=== PATIENT | female | born 1955 | race Caucasian/White ===

== ENCOUNTER → 2016-09-22 | Outpatient (CLI) | payer BC ==
[~2016-09-22] MED LIST: ADVIN25/60 INH; ALBUAER2 INH; MULT-506 PO; NAPR1TAB9 PO; VITAMIN C PO; VNTHFA/IN INH
--- NOTE | 2016-09-22 15:13 | MAMMOGRAPHY REPORT ---
BILATERAL DIGITAL SCREENING MAMMOGRAM WITH CAD: 09/22/2016 CLINICAL HISTORY: Routine screening. Patient has no complaints. TECHNIQUE: Bilateral CC and MLO views were obtained. Current study was also evaluated with a Comput er Aided Detection (CAD) system. COMPARISON: Comparison is made to exams dated: 09/19/2015 mammogram, 09/18/2014 mammogram, 09/13/2013 mammogram, 09/14/2012 mammogram, 09/09/2011 mammogram - [facility], and 08/15/2008. BREAST COMPOSITION: There are scattered areas of fibroglandular density in both breasts. FINDINGS: There is a stable grouping of rounded punctate microcode calcifications and a benign popco rn calcification in the right upper outer quadrant. Stable asymmetry in the left upper outer middle one third of the breast is unchanged dating back to at least 12/23/2006, therefore likely benign. No new suspicious mass, architectural distortion or cluster of microcalcifications is seen. IMPRESSION: ACR BI-RADS CATEGORY 1: NEGATIVE There is no mammographic evidence of malignancy. A 1 year screening mammogram is recommended. The p atient will receive written notification of the results. Approximately 10% of breast cancers are not detected with mammography. A negative mammographic repor t should not delay biopsy if a clinically suggestive mass is present. Alessandra Belle M.D. ay/:09/22/2016 09:07:58 Staff Rn: Orquidea GARCIA(Tyra)([place]ou)([place]), [facility] letter sent: Normal 1/2 BI-RADS Code: ACR BI-RADS Category 1: Negative
== END | disposition home or self-care (01) ==
LOC: C.MAMM 08:42
PROVIDERS: ATTEND Obstetrics & Gynecology
DX: Z12.31 Encounter for screening mammogram for malignant neoplasm of breast (principal)

== ENCOUNTER → 2017-01-19 | Day surgery (SDC) | payer BC ==
[2017-01-05 14:50] VITALS: Ht 167.6 cm; Wt 76.4 kg
[~2017-01-19] VITALS: Ht 167.6 cm; Wt 76.4 kg
[~2017-01-19] MED LIST changes: -ALBUAER2 INH; +ATROPINE SULFATE 0.1 MG/ML 5ML SYR IV PRN; +EpHEDrine SULFATE INJ 50 MG/ML AMP IV PRN; -NAPR1TAB9 PO; +SODIUM CHLORIDE 0.9% 500ML 500 ML IV ONE
--- NOTE | 2017-01-19 14:01 | Endo History and Physical ---
History & Physical Date of Service: Jan 19, 2017. Chief Complaint: Screening Referring Physician: Dr. Jackie Carvalho History of Present Illness 61 yo female who presents for screening colonoscopy. Past Surgical History Hx Cardiac Surgery: No Hx Internal Defibrillator: No Hx Pacemaker: No Hx Abdominal Surgery: Yes (HYSEROSCOPY) Hx of Implantable Prosthesis: No Hx Post-Op Nausea and Vomiting: No Hx Cancer Surgery: No Hx Thoracic Surgery: Yes (BRONCHOSCOPY) Hx Orthopedic: No Hx Urinary Tract Surgery: No Family History None Social History Smoking Status: Never Smoker Hx Substance Use: No Hx Alcohol Use: Yes (OCCASIONALLY) Allergies Coded Allergies: Phenazopyridine (Verified Allergy, Unknown, HIVES, 01/19/17) Piroxicam (Verified Allergy, Unknown, HIVES, 01/19/17) Current Medications Reported Home Medications Medications Dose Route/Sig Max Daily Dose Days Date Category Ventolin Hfa (Albuterol) 200 Puffs/77378 Mcg Aers 2-4 Puffs INH Q6H PRN 01/05/17 Reported [Vitamin C] 1 Tab PO HS 01/05/17 Reported Multivitamin (Multivitamins) Tab 1 Tab PO HS 01/05/17 Reported Advair Diskus 250/50 60 Dose (Fluticasone Prop/Salmeterol) 1 Ea Aerp 1 Puff INH BID 01/05/17 Reported Vital Signs Weight (Kilograms): 76.36 Height (Feet): 5 Height (Inches): 6 Physical Exam General Appearance: WD/WN, no apparent distress Respiratory/Chest: Auscultation: breath sounds normal Cardiovascular: Heart Auscultation: RRR Abdomen: Bowel Sounds: normal Inspection & Palpation: soft, non-distended, no tenderness, guarding & rebound Assessment and Plan Assessment: 61 yo female who presents for screening colonoscopy. Plan: Proceed with colonoscopy.
--- NOTE | 2017-01-19 14:41 | GI REPORT ---
Procedure Date: 01/19/2017 2:12 PM Procedure: Colonoscopy Indications: Screening for colorectal malignant neoplasm Medicines: Monitored Anesthesia Care Complications: No immediate complications. Estimated Blood Loss: Estimated blood loss: none. Procedure: Pre-Anesthesia Assessment: - Prior to the procedure, a History and Physical was performed, and patient medications and allergies were reviewed. The patient's tolerance of previous anesthesia was also reviewed. The risks and benefits of the procedure and the sedation options and risks were discussed with the patient. All questions were answered, and informed consent was obtained. Prior Anticoagulants: The patient has taken no previous anticoagulant or antiplatelet agents. ASA Grade Assessment: II - A patient with mild systemic disease. After reviewing the risks and benefits, the patient was deemed in satisfactory condition to undergo the procedure. After I obtained informed consent, the scope was passed under direct vision. Throughout the procedure, the patient's blood pressure, pulse, and oxygen saturations were monitored continuously. The Scope was introduced through the anus and advanced to the terminal ileum. The colonoscopy was performed without difficulty. The patient tolerated the procedure well. The quality of the bowel preparation was good. The terminal ileum, ileocecal valve, appendiceal orifice, and rectum were photographed. Findings: Two sessile polyps were found in the transverse colon and in the ascending colon. The polyps were 4 to 5 mm in size. These polyps were removed with a hot snare. Resection and retrieval were complete. Multiple small-mouthed diverticula were found in the sigmoid colon. Non-bleeding internal hemorrhoids were found during retroflexion. The hemorrhoids were small. Impression: - Two 4 to 5 mm polyps in the transverse colon and in the ascending colon, removed with a hot snare. Resected and retrieved. - Diverticulosis in the sigmoid colon. - Non-bleeding internal hemorrhoids. Recommendation: - Resume previous diet. - Continue present medications. - Repeat colonoscopy for surveillance based on pathology results. - Return to primary care physician as previously scheduled. Marc Oropeza, DO 01/19/2017 2:41:19 PM This report has been signed electronically. Note Initiated On: 01/19/2017 2:12 PM I attest to the content of the Intraoperative Record and orders documented therein, exceptions below
--- NOTE | 2017-01-19 14:42 | Discharge Instructions ---
Endoscopy Patient Instructions Date / Procedure(s) Performed Jan 19, 2017. Colonoscopy Allergy Information Coded Allergies: Phenazopyridine (Verified Allergy, Unknown, HIVES, 01/19/17) Piroxicam (Verified Allergy, Unknown, HIVES, 01/19/17) Discharge Date / Findings Jan 19, 2017. Colon polyps Diverticulosis Internal hemorrhoids Medication Instructions OK to resume all medications today as prescribed Reported Home Medications Medications Dose Route/Sig Max Daily Dose Days Date Category Ventolin Hfa (Albuterol) 200 Puffs/76246 Mcg Aers 2-4 Puffs INH Q6H PRN 01/05/17 Reported [Vitamin C] 1 Tab PO HS 01/05/17 Reported Multivitamin (Multivitamins) Tab 1 Tab PO HS 01/05/17 Reported Advair Diskus 250/50 60 Dose (Fluticasone Prop/Salmeterol) 1 Ea Aerp 1 Puff INH BID 01/05/17 Reported Provider Instructions Activity Restrictions - No exercising or heavy lifting for 24 hours. - Do not drink alcohol the day of the procedure. - Do not drive a car or operate machinery until the day after the procedure. - Do not make any important decisions or sign important papers in 24 hours after the procedure. Following Day: - Return to full activity which may include returning to work/school. Diet Start your diet with liquids and light foods (jello, soup, juice, toast). Then eat your usual diet if not nauseated. Treatment For Common After Affects For mild abdominal pain, bloating, or excessive gas: - Rest - Eat lightly - Lie on right side Follow-Up Information Follow-up with Jackie Carvalho as scheduled Anesthesia Information What You Should Know You have had a procedure that required some medicine to reduce anxiety and discomfort. This treatment is called moderate sedation. After receiving the treatment, you may be sleepy, but you will be able to breathe on your own. The effects of the treatment may last for several hours. Follow these instructions along with Activity/Diet recommendations noted above: * Do NOT do anything where dizziness or clumsiness would be dangerous. * Rest quietly at home today, then you can be up and about tomorrow. * Have a responsible person stay with you the rest of today. * You may have had an I.V. today. If so, you may take the dressing off later today. Recommendations Call your doctor if: * Trouble breathing * Continuous vomiting for more than 24 hours * Temperature above 101 degrees * Severe abdominal pain or bloating * Pain not relieved by pain medicine ordered * There is increased drainage or redness from any incision * A large amount of rectal bleeding greater than 2-3 tablespoons. (If you had a polyp/s removed or have hemorrhoids, a small amount of blood - from the rectum is to be expected.) * You have any unanswered questions or concerns. IN THE EVENT OF A SERIOUS EMERGENCY, GO TO THE NEAREST EMERGENCY ROOM Your discharge instructions were prepared by provider Marc Oropeza. Patient Instructions Signature Page Carey Allan Patient (or Guardian) Signature/Date: I have read and understand the instructions given to me by my caregivers. Caregiver/RN/Doctor Signature/Date: The above-named patient and/or guardian has received patient instructions on this date. + Original Patient Signature Page (only) stays with chart. Please make copy for patient.
[2017-01-19 15:10] VITALS: BP 118/78; PULSE 73; O2SAT 96
--- NOTE | 2017-01-19 15:11 | Anesthesiology Progress Note ---
Anesthesia Post Op Note Date & Time Jan 19, 2017 at 15:11 Vital Signs Pain Intensity: 0 Vital Signs Past 12 Hours Date Time Temp Pulse Resp B/P (MAP) Pulse Ox O2 Delivery O2 Flow Rate FiO2 01/19/17 14:55 86 16 108/78 (88) 99 Room Air 01/19/17 14:40 72 12 117/69 (85) 95 Room Air 01/19/17 14:06 36.6 91 91 104/78 (87) 96 Room Air Notes Mental Status: alert / awake / arousable, participated in evaluation Pt Amnestic to Procedure: Yes Nausea / Vomiting: adequately controlled Pain: adequately controlled Airway Patency, RR, SpO2: stable & adequate BP & HR: stable & adequate Hydration State: stable & adequate Anesthetic Complications: no major complications apparent
== END | disposition home or self-care (01) ==
LOC: C.GI 13:39
PROVIDERS: ATTEND Internal Medicine
DX: Z12.11 Encounter for screening for malignant neoplasm of colon (principal); D12.3 Benign neoplasm of transverse colon; D12.2 Benign neoplasm of ascending colon; K57.30 Diverticulosis of large intestine without perforation or abscess without bleeding; K64.8 Other hemorrhoids; J45.909 Unspecified asthma, uncomplicated; Z98.890 Other specified postprocedural states; Z68.27 Body mass index [BMI] 27.0-27.9, adult

== ENCOUNTER → 2017-07-07 | Outpatient (CLI) | payer BC ==
[~2017-07-07] MED LIST changes: -ATROPINE SULFATE 0.1 MG/ML 5ML SYR IV PRN; -EpHEDrine SULFATE INJ 50 MG/ML AMP IV PRN; -SODIUM CHLORIDE 0.9% 500ML 500 ML IV ONE
--- NOTE | 2017-07-07 22:17 | ECHOCARDIOGRAM REPORT ---
*NOTICE TO RECEIVING REPUBLICAN AGENCY This information is strictly Confidential and protected under [place] law. [place] law prohibits you from making any further disclosure of this information unless further disclosure is expressly permitted by the written consent of the person to whom it pertains or is authorized by law. A general authorization for the release of medical or other information is not sufficient for this purpose. Hospital accepts no responsibility if the information is made available to any other person, INCLUDING THE PATIENT. Interpretation Summary * Name: KEVEN GARCIA Study Date: 07/07/2017 02:04 PM BP: 140/86 mmHg * Patient Location: [facility] HR: 69 * : 1955 (M/d/yyyy) Gender: Female Height: 66 in * Age: 61 yrs Ethnicity: AA Weight: 175 lb * Ordering Physician: Jackie Carvalho * Referring Physician: Jackie Carvalho * Performed By: Moy Arora RCS * * Reason For Study: Valvular heart Dz, AI * BSA: 1.9 m2 * -- Conclusions -- * 1. Normal left ventricular size and systolic function. EF 60-65%. No regional wall motion abnormalities. No left ventricular hypertrophy. Type 1 diastolic dysfunction. * 2. Mild aortic regurgitation. * 3. There is mild mitral regurgitation. * 4. Normal estimated right ventricular systolic pressure. * 5. No significant change from prior study on 05/02/2015. Procedure Details * A complete two-dimensional transthoracic echocardiogram was performed (2D, M-mode, Doppler and color flow Doppler). Left Ventricle * Normal left ventricular size and systolic function. EF 60-65%. No regional wall motion abnormalities. No left ventricular hypertrophy. Type 1 diastolic dysfunction. Right Ventricle * The right ventricle is normal in size and function. * The right ventricular systolic function is normal as assessed by tricuspid annular plane systolic excursion (TAPSE) (normal >1.5 cm). Atria * The left atrial size is normal. * Right atrial size is normal. * There is no evidence of atrial septal defect, but resolution does not allow assessment for a patent foramen ovale. Mitral Valve * There is mild mitral annular calcification. * There is no mitral valve stenosis. * There is mild mitral regurgitation. Tricuspid Valve * The tricuspid valve is not well visualized, but is grossly normal. * There is no tricuspid stenosis. * There is mild tricuspid regurgitation. Aortic Valve * The aortic valve is trileaflet. * Aortic valve sclerosis mild, without significant aortic valvular stenosis. * No hemodynamically significant valvular aortic stenosis. * Mild aortic regurgitation. Pulmonic Valve * The pulmonary valve is inadequately visualized, but the Doppler data is adequate for interpretation. * There is no pulmonic valvular stenosis. * Trace pulmonic valvular regurgitation. Great Vessels * The aortic root is normal size. * Ascending aorta of normal dimension Pericardium/Pleural * There is no pericardial effusion. Great Vessels * Normal inferior vena cava size and collapsability with sniff indicates a normal right atrial pressure of 3 mmHg MMode 2D Measurements and Calculations IVSd 0.97 cm LVIDd 4.1 cm LVIDs 2.6 cm LVPWd 1.0 cm IVS/LVPW 0.96 FS 36.2 % EDV(Teich) 73.1 ml ESV(Teich) 24.6 ml EF(Teich) 66.3 % EDV(cubed) 67.6 ml ESV(cubed) 17.6 ml EF(cubed) 74.0 % LV mass(C)d 128.8 grams LV mass(C)dI 68.1 grams/m\S\2 SV(Teich) 48.5 ml SI(Teich) 25.7 ml/m\S\2 SV(cubed) 50.0 ml SI(cubed) 26.5 ml/m\S\2 Ao root diam 3.0 cm Ao root area 7.0 cm\S\2 ACS 1.5 cm LA dimension 3.6 cm asc Aorta Diam 2.9 cm LA/Ao 1.2 LVOT diam 2.0 cm LVOT area 3.0 cm\S\2 Doppler Measurements and Calculations MV E max kapil 134.0 cm/sec MV A max kapil 137.3 cm/sec MV E/A 0.98 MV P1/2t max kapil 119.9 cm/sec MV P1/2t 63.4 msec MVA(P1/2t) 3.5 cm\S\2 MV dec slope 554.1 cm/sec\S\2 MV dec time 0.26 sec Ao V2 max 196.8 cm/sec Ao max PG 15.5 mmHg Ao max PG (full) 8.9 mmHg Ao V2 mean 133.8 cm/sec Ao mean PG 8.0 mmHg Ao mean PG (full) 4.7 mmHg Ao V2 VTI 40.5 cm BRIGETTE(I,A) 1.7 cm\S\2 BRIGETTE(I,D) 1.7 cm\S\2 BRIGETTE(V,A) 2.0 cm\S\2 BRIGETTE(V,D) 2.0 cm\S\2 AI max kapil 389.3 cm/sec AI max PG 60.6 mmHg AI dec slope 209.7 cm/sec\S\2 AI P1/2t 543.8 msec LV V1 max PG 6.6 mmHg LV V1 mean PG 3.4 mmHg LV V1 max 128.5 cm/sec LV V1 mean 84.1 cm/sec LV V1 VTI 23.4 cm SV(Ao) 284.7 ml SI(Ao) 150.7 ml/m\S\2 SV(LVOT) 70.5 ml SI(LVOT) 37.3 ml/m\S\2 PA V2 max 126.2 cm/sec PA max PG 6.5 mmHg PI max kapil 174.9 cm/sec PI max PG 12.3 mmHg PI dec slope 178.7 cm/sec\S\2 PI P1/2t 286.7 msec TR max kapil 200.3 cm/sec RVSP(TR) 19.1 mmHg RAP systole 3.0 mmHg
== END | disposition home or self-care (01) ==
LOC: C.CPL 13:54
PROVIDERS: ATTEND Family Medicine
DX: I35.1 Nonrheumatic aortic (valve) insufficiency (principal)

== ENCOUNTER → 2017-10-16 | Outpatient (CLI) | payer OTHER ==
--- NOTE | 2017-10-16 13:55 | MAMMOGRAPHY REPORT ---
BILATERAL DIGITAL SCREENING MAMMOGRAM TOMOSYNTHESIS WITH CAD: 10/16/2017 CLINICAL HISTORY: Routine screening. TECHNIQUE: Breast tomosynthesis in addition to standard 2D mammography was performed. Current study was also evaluated with a Computer Aided Detection (CAD) system. COMPARISON: Comparison is made to exams dated: 09/19/2015 mammogram, 09/22/2016 mammogram, 09/18/2014 m ammogram, 09/13/2013 mammogram, 09/10/2012 mammogram, and 09/09/2011 mammogram - [facility]. BREAST COMPOSITION: There are scattered areas of fibroglandular density in both breasts. FINDINGS: No suspicious masses, calcifications, or areas of architectural distortion are noted in ei ther breast. There has been no significant interval change compared to prior exams. Small benign-que earing mass with associated coarse popcorn calcifications in the right upper outer quadrant is stable and compatible with a degenerating fibroadenoma. Asymmetries in the left upper outer quadrant are a lso stable. IMPRESSION: ACR BI-RADS CATEGORY 2: BENIGN There is no mammographic evidence of malignancy. A 1 year screening mammogram is recommended. The pa tient will receive written notification of the results. Approximately 10% of breast cancers are not detected with mammography. A negative mammographic report should not delay biopsy if a clinically suggestive mass is present. Suzie Richards M.D. /:10/16/2017 12:23:53 Showroom Sales Assistant: Nicole ERICKSON)([place]), [facility] letter sent: Normal 1/2 BI-RADS Code: ACR BI-RADS Category 2: Benign
== END | disposition home or self-care (01) ==
LOC: C.MAMM 10:03
PROVIDERS: ATTEND Obstetrics & Gynecology
DX: Z12.31 Encounter for screening mammogram for malignant neoplasm of breast (principal)

== ENCOUNTER → 2017-11-27 | Outpatient (CLI) | payer OTHER ==
--- NOTE | 2017-11-27 13:02 | DIAGNOSTIC IMAGING REPORT ---
R ANKLE MIN 3 VIEWS ROUTINE, R FOOT MIN 3 VIEWS ROUTINE HISTORY: 61 years-old Female S99.911A acute right foot and ankle pain status post fall COMPARISON: Right foot radiographs 03/13/2016 TECHNIQUE: 3 views of the right foot and 3 views of the right ankle FINDINGS: ANKLE: Moderate sized enthesophyte about the plantar calcaneus. There is no acute fracture, osteochondral defect or dislocation. Imaged soft tissues are unremarkable without opaque foreign body. FOOT: Minimal hallux valgus deformity. There is no acute fracture, or dislocation. Bipartite medial hallux sesamoid. Mild marginal spurring about the dorsal midfoot with moderate joint space narrowing with marginal spurring about the hallux sesamoid articulation with the first metatarsal head. IMPRESSION: 1. No acute fracture. 2. Mild degenerative changes as above. The above report was generated using voice recognition software. It may contain grammatical, syntax or spelling errors. Electronically signed by: Sherman Sanchez M.D. 11/27/2017 1:00 PM Dictated Date/Time: 11/27/2017 12:57 PM
== END | disposition home or self-care (01) ==
LOC: C.RAD 12:24
PROVIDERS: ATTEND Nurse Practitioner
DX: M19.071 Primary osteoarthritis, right ankle and foot (principal)